=== PATIENT | female | born 1995 | race American Indian/Alaskan Native ===

== ENCOUNTER 2018-09-20 11:41 | Emergency (ER) | payer MEDICAID, OTHER ==
[2018-09-20 11:52] VITALS: BP 109/72
[2018-09-20 12:37] LABS: Bacteria,Urine 1+ /HPF (Negative); Bilirubin,Urine NEG (Negative); Blood,Urine LG (Negative); Color,Urine Yellow (Yellow); Mucus,Urine FEW /HPF; Protein,Urine <15 mg/dL mg/dL (Negative); Urobilinogen,Urine < 2.0 mg/dL (<2.0)
[2018-09-20 12:41] LABS: HCG Qualitative,Urine Negative (Negative)
[2018-09-20 13:15] LABS: Basophils % (Auto) 0.8 % (0.0-1.8); Eosinophils % (Auto) 0.3 % (0.0-4.3); Hematocrit 40.4 % (30.3-42.9); Hemoglobin 13.6 gm/dl (10.1-14.3); Lymphocytes # (Auto) 1.3 K/mm3 (1.2-5.4); Lymphocytes % (Auto) 21.1 % (13.4-35.0); Mean Corpuscular HGB Conc 34 % (30-34); Mean Corpuscular Volume 95 fl (79-97); Monocytes # (Auto) 0.3 K/mm3 (0.0-0.8); Monocytes % (Auto) 5.1 % (0.0-7.3); Platelet Count 241 K/mm3 (140-440); Red Blood Count 4.27 M/mm3 (3.65-5.03); Red Cell Distribution Width 13.1 % (13.2-15.2)
[2018-09-20] MEDS ORDERED: NACL 0.9% 1000 ML 1,000 ML IV ONE (13:18)
--- NOTE | 2018-09-20 13:24 | Emergency Department Report ---
ED Syncope HPI - General Chief Complaint: Nausea/Vomiting/Diarrhea Stated Complaint: N/V Time Seen by Provider: 09/20/18 13:12 - History of Present Illness Initial Comments: 22-year-old female, no past medical history, presents to the ED for near- syncope. Patient states she was standing at the bus stop and became dizzy, lightheaded, nauseated. Patient states she had to sit down to avoid passing out. Patient states she then vomited. Patient denies headache, chest pain, shortness of breath. Reported prior history of syncopal episode one year ago. States she had something to eat just before arriving at the bus stop. Patient reports she is feeling much better at this time. Timing/Prior Episodes: remote history Precipitating Factors: Positive: lightheadedness, nausea Context: standing Loss of Consciousness: no loss of consciousness Current Symptoms: back to normal - Related Data Allergies/Adverse Reactions: Allergies No Known Allergies Allergy (Verified 01/27/15 20:54) Home Medications: Ambulatory Orders Vit-Fe Fumar-FA [ Vitamin] 1 tab PO QDAY 01/27/15 Ibuprofen [Motrin 600 MG tab] 600 mg PO Q6HR #30 tablet 01/29/15 oxyCODONE /ACETAMINOPHEN [Percocet 5/325 mg] 2 tab PO Q4H PRN #30 tablet 02/04 ED Review of Systems ROS: Stated complaint: N/V Other details as noted in HPI Comment: All other systems reviewed and negative Constitutional: denies: chills, fever Respiratory: denies: shortness of breath Cardiovascular: denies: chest pain, palpitations Gastrointestinal: nausea, vomiting. denies: abdominal pain, diarrhea Neurological: denies: headache, weakness, numbness ED Past Medical Hx - Past Medical History Previous Medical History?: No Hx Hypertension: No Hx Congestive Heart Failure: No Hx Diabetes: No Hx Deep Vein Thrombosis: No Hx Renal Disease: No Hx Sickle Cell Disease: No Hx Seizures: No Hx Asthma: No Hx COPD: No Hx HIV: No - Surgical History Past Surgical History?: No - Social History Smoking Status: Never Smoker Substance Use Type: None - Medications Home Medications: Home Medications Medication Instructions Recorded Confirmed Last Taken Type Vit-Fe Fumar-FA [ 1 tab PO QDAY 01/27/15 01/27/15 01/27/15 History Vitamin] Ibuprofen [Motrin 600 MG tab] 600 mg PO Q6HR #30 tablet 01/29/15 Unknown Rx oxyCODONE /ACETAMINOPHEN [Percocet 2 tab PO Q4H PRN #30 tablet 01/29/15 Unknown Rx 5/325 mg] ED Physical Exam - General Limitations: No Limitations General appearance: alert, in no apparent distress - Head Head exam: Present: atraumatic, normocephalic - Eye Eye exam: Present: normal appearance - ENT ENT exam: Present: mucous membranes moist - Neck Neck exam: Present: normal inspection - Respiratory Respiratory exam: Present: normal lung sounds bilaterally. Absent: respiratory distress - Cardiovascular Cardiovascular Exam: Present: regular rate, normal rhythm - GI/Abdominal GI/Abdominal exam: Present: soft. Absent: distended, tenderness - Extremities Exam Extremities exam: Present: normal inspection - Neurological Exam Neurological exam: Present: alert, oriented X3, CN II-XII intact. Absent: motor sensory deficit - Psychiatric Psychiatric exam: Present: normal affect, normal mood - Skin Skin exam: Present: warm, dry, intact, normal color. Absent: rash ED Course Vital Signs 09/20/18 11:50 Temperature 98.5 F Pulse Rate 86 Respiratory 16 Rate Blood Pressure 109/72 ED Medical Decision Making - Lab Data Result diagrams: 09/20/18 13:00 09/20/18 13:00 - EKG Data EKG shows normal: sinus rhythm, axis, intervals, QRS complexes, ST-T waves Rate: normal - EKG Data Interpretation: no acute changes, other (occcasional PACs) - Differential Diagnosis dehydration, arythmia, vasovagal Critical care attestation.: If time is entered above; I have spent that time in minutes in the direct care of this critically ill patient, excluding procedure time. ED Disposition Clinical Impression: Near syncope Disposition: DC-01 TO HOME OR SELFCARE Is pt being admited?: No Condition: Stable Instructions: Near Syncope (ED) Referrals: BELTRAN RAMIREZ MD [Primary Care Provider] - 3-5 Days Time of Disposition: 14:52
[2018-09-20 13:29] LABS: BUN/Creatinine Ratio 10; Blood Urea Nitrogen 7 mg/dL (7-17); Calcium 8.8 mg/dL (8.4-10.2); Hemolysis Index 51
== END 2018-09-20 15:10 | disposition home or self-care (01) ==
LOC: ED 11:41
DX: R55 Syncope and collapse (principal)
CPT/HCPCS: 36415; 80048; 81001; 81025; 85025; 93005; 93010; 96360; 99283; J7030